=== PATIENT | male | born 1960 | race Caucasian/White ===

== ENCOUNTER → 2016-11-20 | Outpatient (CLI) | payer BC ==
[~2016-11-20] VITALS: Ht 190.5 cm; Wt 97.7 kg
[~2016-11-20] MED LIST: ATORVASTATIN PO; FISHOIL PO; FLUTICASONE OTB; METAMUCIL PO; METOPROLOL PO; MULTIVITAMIN PO; PRT/20 PO; TESTOSTERONE TOP; VITAMIN C PO; VITAMIN E PO
[2016-11-20 15:01] VITALS: BP 138/86; PULSE 56; Ht 190.5 cm; Wt 97.7 kg
== END | disposition home or self-care (01) ==
LOC: C.NEUR 14:48
PROVIDERS: ATTEND Internal Medicine Pulmonary Disease
DX: G47.33 Obstructive sleep apnea (adult) (pediatric) (principal)

== ENCOUNTER → 2016-11-29 | Outpatient (CLI) | payer BC ==
[2016-11-29 09:39] LABS: BASO % 0.6 %; BASO ABS # 0.03 K/uL (0-0.2); COMPLETE YES; EOS % 0.6 %; IG% 0.2 %; LYMPH ABS # 1.13 K/uL (1.2-3.4); MEAN CELL VOLUME 88.1 fL (80-100); MEAN CORPUSCULAR HEMOGLOBIN 30.8 pg (25-34); MONO % 10.2 %; NEUT % 67.4 %; PLATELET COUNT 148 K/uL (130-400); RED BLOOD COUNT 5.22 M/uL (4.7-6.1); WHITE BLOOD COUNT 5.39 K/uL (4.8-10.8)
[2016-11-29 09:51] LABS: ALT/SGPT 72 U/L (12-78); BLOOD UREA NITROGEN 13 mg/dl (7-18); BUN/CREATININE RATIO 14.4 (10-20); CALCIUM 9.4 mg/dl (8.5-10.1); CARBON DIOXIDE 25 mmol/L (21-32); CHLORIDE 106 mmol/L (98-107); CHOLESTEROL 163 mg/dl (0-200); CREATININE 0.93 mg/dl (0.60-1.40); GLUCOSE 116 mg/dl (70-99); POTASSIUM 4.4 mmol/L (3.5-5.1); SODIUM 141 mmol/L (136-145)
[2016-11-29 09:54] LABS: ALKALINE PHOSPHATASE 88 U/L (45-117); AST/SGOT 43 U/L (15-37); CHOLESTEROL/HDL RATIO 2.9; HDL CHOLESTEROL 57 mg/dl; LDL CHOLESTEROL CALCULATED 85 mg/dl; TRIGLYCERIDES 106 mg/dl (0-150); VERY LOW DENSITY LIPOPROT CALC 21 mg/dl
== END | disposition home or self-care (01) ==
LOC: C.LAB 07:39
PROVIDERS: ATTEND Family Medicine
DX: E29.1 Testicular hypofunction (principal); I10 Essential (primary) hypertension; E78.5 Hyperlipidemia, unspecified; Z13.0 Encounter for screening for diseases of the blood and blood-forming organs and certain disorders involving the immune mechanism

== ENCOUNTER → 2016-12-14 | Outpatient (CLI) | payer BC ==
[2016-12-14 10:31] LABS: ESTIMATED AVERAGE GLUCOSE 117 mg/dl; HA1C FLAG Normal (Normal)
== END | disposition home or self-care (01) ==
LOC: C.LAB 07:32
PROVIDERS: ATTEND Family Medicine
DX: R73.01 Impaired fasting glucose (principal)

== ENCOUNTER → 2017-05-30 | Outpatient (CLI) | payer BC | END | disposition home or self-care (01) | LOC: C.LAB 07:36 | PROVIDERS: ATTEND Urology | DX: N35.9 Urethral stricture, unspecified (principal); C62.90 Malignant neoplasm of unspecified testis, unspecified whether descended or undescended; N40.0 Benign prostatic hyperplasia without lower urinary tract symptoms; Z12.5 Encounter for screening for malignant neoplasm of prostate ==

== ENCOUNTER → 2017-10-15 | Day surgery (SDC) | payer BC ==
[2017-10-04 13:58] VITALS: Ht 190.5 cm; Wt 100.0 kg
[~2017-10-15] VITALS: Ht 190.5 cm; Wt 100.0 kg
[~2017-10-15] MED LIST changes: +ASCO-63 PO; +ATOR-22 PO; -ATORVASTATIN PO; +DEXT-233; -FISHOIL PO; +FLUT50SP45 NAE; -FLUTICASONE OTB; +LIDOCAINE HCL 2% 2 ML VIAL (20MG/ML) ONE; -METAMUCIL PO; -METOPROLOL PO; +MULT-506 PO; -MULTIVITAMIN PO; +OMEG10007 PO; +PROPOFOL IV EMULSION 10 MG/ML 20 ML VIAL IV ONE; -PRT/20 PO; +PSYL48.59 PO; +TEST5GEL TOP; -TESTOSTERONE TOP; +TPRSR/25 PO; +VITA400C3 PO; -VITAMIN C PO; -VITAMIN E PO; +ZNTT/150 PO
[2017-10-15 12:25] VITALS: TEMP 36.6
--- NOTE | 2017-10-15 12:58 | Endo History and Physical ---
History & Physical Date of Service: Oct 15, 2017. Chief Complaint: History of varicies Referring Physician: Emilia History of Present Illness For EGD Past Surgical History Hx Cardiac Surgery: Yes (HEART CATH/NO STENTS) Hx Internal Defibrillator: No Hx Pacemaker: No Hx Abdominal Surgery: No Hx of Implantable Prosthesis: No Hx Post-Op Nausea and Vomiting: No Hx Cancer Surgery: Yes (RT ORCHIECTOMY) Hx Thoracic Surgery: Yes (LAMINECTOMY) Hx Orthopedic: No Hx Urinary Tract Surgery: No Family History None Social History Smoking Status: Former Smoker Hx Substance Use: No Hx Alcohol Use: Yes (RARELY) Allergies Coded Allergies: No Known Allergies (Unverified , 10/04/17) Current Medications Reported Home Medications Medications Dose Route/Sig Max Daily Dose Days Date Category Day Time Multi-Symptom Co (Dextromethorphan-Phenylephrine) 1 Cap Cap 10/15/17 Reported Metamucil (Psyllium) 48.57 % Pow 1.5 Tsp PO QPM 10/04/17 Reported Allergy Nasal [place] 24 Ho (Fluticasone Propionate (Nasal)) 50 Mcg/Act Spr 2 [place] JONI QAM 10/04/17 Reported Androgel Pump (Testosterone) 1.62 % Gel 40.5 Mg TOP QAM 10/04/17 Reported [place]-3 (Fish Oil) 1 Ea Cap 2 Cap PO QAM 10/04/17 Reported Vitamin E 400 Iu (Vitamin E) 400 Unit Cap 800 Inter.unit PO QAM 10/04/17 Reported Vitamin C (Ascorbic Acid) 500 Mg Tab 1 Tab PO QAM 10/04/17 Reported Multivitamin (Multivitamins) Tab 1 Tab PO QAM 10/04/17 Reported Zantac (Ranitidine HCl) 150 Mg Tab 150 Mg PO QAM 10/04/17 Reported Lipitor (Atorvastatin Calcium) 20 Mg Tab 20 Mg PO QAM 10/04/17 Reported Metoprolol Succinate ER (Metoprolol Succinate) 25 Mg Tabcr 1 Tab PO QAM 10/04/17 Reported Vital Signs Weight (Kilograms): 100 Height (Feet): 6 Height (Inches): 3 Date Time Temp Pulse Resp B/P (MAP) Pulse Ox O2 Delivery O2 Flow Rate FiO2 10/15/17 12:25 36.6 54 16 144/78 (100) 96 Room Air Physical Exam General Appearance: WD/WN Respiratory/Chest: Respiratory effort: no dyspnea Cardiovascular: Heart Auscultation: RRR Abdomen: Inspection & Palpation: soft Assessment and Plan Hx of single varix for EGD
--- NOTE | 2017-10-15 13:09 | Discharge Instructions ---
Endoscopy Patient Instructions Date / Procedure(s) Performed Oct 15, 2017. EGD Allergy Information Coded Allergies: No Known Allergies (Unverified , 10/04/17) Discharge Date / Findings Oct 15, 2017. Single varix Medication Instructions Restart Stopped Medication(s): resume meds Reported Home Medications Medications Dose Route/Sig Max Daily Dose Days Date Category Day Time Multi-Symptom Co (Dextromethorphan-Phenylephrine) 1 Cap Cap 10/15/17 Reported Metamucil (Psyllium) 48.57 % Pow 1.5 Tsp PO QPM 10/04/17 Reported Allergy Nasal [place] 24 Ho (Fluticasone Propionate (Nasal)) 50 Mcg/Act Spr 2 [place] JONI QAM 10/04/17 Reported Androgel Pump (Testosterone) 1.62 % Gel 40.5 Mg TOP QAM 10/04/17 Reported [place]-3 (Fish Oil) 1 Ea Cap 2 Cap PO QAM 10/04/17 Reported Vitamin E 400 Iu (Vitamin E) 400 Unit Cap 800 Inter.unit PO QAM 10/04/17 Reported Vitamin C (Ascorbic Acid) 500 Mg Tab 1 Tab PO QAM 10/04/17 Reported Multivitamin (Multivitamins) Tab 1 Tab PO QAM 10/04/17 Reported Zantac (Ranitidine HCl) 150 Mg Tab 150 Mg PO QAM 10/04/17 Reported Lipitor (Atorvastatin Calcium) 20 Mg Tab 20 Mg PO QAM 10/04/17 Reported Metoprolol Succinate ER (Metoprolol Succinate) 25 Mg Tabcr 1 Tab PO QAM 10/04/17 Reported Provider Instructions Activity Restrictions - No exercising or heavy lifting for 24 hours. - Do not drink alcohol the day of the procedure. - Do not drive a car or operate machinery until the day after the procedure. - Do not make any important decisions or sign important papers in 24 hours after the procedure. Following Day: - Return to full activity which may include returning to work/school. Diet Start your diet with liquids and light foods (jello, soup, juice, toast). Then eat your usual diet if not nauseated. Treatment For Common After Affects For mild abdominal pain, bloating, or excessive gas: - Rest - Eat lightly - Lie on right side Follow-Up Information Follow-up with Emilia as scheduled Anesthesia Information What You Should Know You have had a procedure that required some medicine to reduce anxiety and discomfort. This treatment is called moderate sedation. After receiving the treatment, you may be sleepy, but you will be able to breathe on your own. The effects of the treatment may last for several hours. Follow these instructions along with Activity/Diet recommendations noted above: * Do NOT do anything where dizziness or clumsiness would be dangerous. * Rest quietly at home today, then you can be up and about tomorrow. * Have a responsible person stay with you the rest of today. * You may have had an I.V. today. If so, you may take the dressing off later today. Recommendations Call your doctor if: * Trouble breathing * Continuous vomiting for more than 24 hours * Temperature above 101 degrees * Severe abdominal pain or bloating * Pain not relieved by pain medicine ordered * There is increased drainage or redness from any incision * A large amount of rectal bleeding greater than 2-3 tablespoons. (If you had a polyp/s removed or have hemorrhoids, a small amount of blood - from the rectum is to be expected.) * You have any unanswered questions or concerns. IN THE EVENT OF A SERIOUS EMERGENCY, GO TO THE NEAREST EMERGENCY ROOM Your discharge instructions were prepared by provider Hermann Jacobs. Patient Instructions Signature Page [facility] Camejo Patient (or Guardian) Signature/Date: I have read and understand the instructions given to me by my caregivers. Caregiver/RN/Doctor Signature/Date: The above-named patient and/or guardian has received patient instructions on this date. + Original Patient Signature Page (only) stays with chart. Please make copy for patient.
--- NOTE | 2017-10-15 13:15 | GI REPORT ---
Procedure Date: 10/15/2017 1:03 PM Procedure: Upper GI endoscopy Indications: Follow-up of esophageal varices Medicines: Propofol total dose 170 mg IV, Lidocaine 40 mg IV Complications: No immediate complications. Estimated Blood Loss: Estimated blood loss: none. Procedure: Pre-Anesthesia Assessment: - Prior to the procedure, a History and Physical was performed, and patient medications, allergies and sensitivities were reviewed. The patient's tolerance of previous anesthesia was reviewed. - The risks and benefits of the procedure and the sedation options and risks were discussed with the patient. All questions were answered and informed consent was obtained. After obtaining informed consent, the endoscope was passed under direct vision. Throughout the procedure, the patient's blood pressure, pulse, and oxygen saturations were monitored continuously. The On-site loaner was introduced through the mouth, and advanced to the second part of duodenum. The upper GI endoscopy was accomplished without difficulty. The patient tolerated the procedure well. Findings: The Z-line was regular and was found 40 cm from the incisors. A single grade I varix was found in the middle third of the esophagus. It was 5 mm in largest diameter. The entire examined stomach was normal. The examined duodenum was normal. Impression: - Z-line regular, 40 cm from the incisors. - Grade I esophageal varices. - Normal stomach. - Normal examined duodenum. - No specimens collected. Recommendation: - Discharge patient to home (ambulatory). - Continue present medications. - Return to primary care physician PRN. Hermann Jacobs M.D. Hermann Jacobs MD 10/15/2017 1:14:56 PM This report has been signed electronically. Note Initiated On: 10/15/2017 1:03 PM I attest to the content of the Intraoperative Record and orders documented therein, exceptions below
[2017-10-15 13:42] VITALS: BP 130/83; PULSE 52; O2SAT 96
== END | disposition home or self-care (01) ==
LOC: C.GI 12:07
PROVIDERS: ATTEND Internal Medicine Gastroenterology
DX: I85.00 Esophageal varices without bleeding (principal); E78.5 Hyperlipidemia, unspecified; G47.33 Obstructive sleep apnea (adult) (pediatric); K21.9 Gastro-esophageal reflux disease without esophagitis; R01.1 Cardiac murmur, unspecified; Z87.891 Personal history of nicotine dependence; Z79.899 Other long term (current) drug therapy

== ENCOUNTER → 2017-12-05 | Outpatient (CLI) | payer BC ==
[~2017-12-05] MED LIST changes: -LIDOCAINE HCL 2% 2 ML VIAL (20MG/ML) ONE; -PROPOFOL IV EMULSION 10 MG/ML 20 ML VIAL IV ONE; +RANI150T85 PO; -ZNTT/150 PO
[2017-12-05 09:27] LABS: BASO % 0.4 %; BASO ABS # 0.02 K/uL (0-0.2); EOS % 0.9 %; EOS ABS # 0.04 K/uL (0-0.5); HEMATOCRIT 47.1 % (42-52); HEMOGLOBIN 16.2 g/dL (14.0-18.0); IG# 0.01 K/uL (0.00-0.02); LYMPH % 30.8 %; LYMPH ABS # 1.39 K/uL (1.2-3.4); MEAN CELL VOLUME 89.2 fL (80-100); MEAN CORPUSCULAR HEMOGLOBIN 30.7 pg (25-34); MEAN CORPUSCULAR HGB CONC 34.4 g/dl (32-36); MEAN PLATELET VOLUME 10.3 fL (7.4-10.4); MONO % 13.3 %; NEUT % 54.4 %; NEUT ABS # 2.45 K/uL (1.4-6.5); PLATELET COUNT 133 K/uL (130-400); RED CELL DISTRIBUTION WIDTH CV 13.8 % (11.5-14.5); RED CELL DISTRIBUTION WIDTH SD 45.1 fL (36.4-46.3); WHITE BLOOD COUNT 4.51 K/uL (4.8-10.8)
[2017-12-05 09:41] LABS: HEMOGLOBIN A1C 5.7 % (4.5-5.6)
[2017-12-05 09:43] LABS: ALBUMIN 3.8 gm/dl (3.4-5.0); ALT/SGPT 52 U/L (12-78); AST/SGOT 37 U/L (15-37); BLOOD UREA NITROGEN 14 mg/dl (7-18); CALCIUM 8.8 mg/dl (8.5-10.1); CARBON DIOXIDE 29 mmol/L (21-32); CHOLESTEROL 151 mg/dl (0-200); CREATININE 0.95 mg/dl (0.60-1.40); GLUCOSE 102 mg/dl (70-99); POTASSIUM 4.5 mmol/L (3.5-5.1); SODIUM 138 mmol/L (136-145)
[2017-12-05 09:53] LABS: ALKALINE PHOSPHATASE 73 U/L (45-117); LDL CHOLESTEROL CALCULATED 82 mg/dl; TOTAL PROTEIN 7.4 gm/dl (6.4-8.2)
== END | disposition home or self-care (01) ==
LOC: C.LAB 08:26
PROVIDERS: ATTEND Urology
DX: E78.5 Hyperlipidemia, unspecified (principal); R73.01 Impaired fasting glucose; N35.9 Urethral stricture, unspecified

== ENCOUNTER → 2018-01-03 | Outpatient (CLI) | payer BC ==
--- NOTE | 2018-01-04 06:09 | PAP/PSG TECHNICIAN REPORT ---
[facility] Administrator Of Home Health Polysomnogram Report Study name: None Report date: 01/04/2018 Study date: 01/03/2018 Referring Physician: Minoo Cervantes PA-C, PA-C Name: ROBYN SCRUGGS Interpreting Physician: Chavo Stephens M.D. Date of : 1960 Administrator Of Home Health: Danita Geiger, PSGT. Sex: Male Age: 57 StudyType: PSG Weight: 219 lbs Height: 57 years, Height 6' 3" Neck Circum:17.5 inches BMI: 27.37 Medications: Vitamin C, Atorvastatin 20 mg, Metoprolol ER 25 mg, Srinivasa gel pump, Fluticasone 50 mcg, Fortesta 10 mg, Fish Oil, Metamucil, Multi-Vitamin, Ranitidine 150 mg, Vitamin E 400 unit. Patient History 57-year-old male presents to the lab to see if he still has CATHRYN, he has used c-pap in the past at the rate of 8 cm h20 but was told his last study that it was up to him rather he use it or not. He has not been very compliant with it since. He is here to see if it is really a need or not. Neck = 17.5 inches Parameters Monitored NPSG: E1-M2, E2-M1, Fp1-M2, Fp2-M1, F3-M2, F4-M2, F4-M1, C3-M2, C4-M2, C4-M1, O1-M2, O2-M2, O2-M1, T3-M2, T4-M1, P3-M2, P4-M1, CHIN1, CHIN2, HR, EKG, Legs, PFLOW, SNOR, FLOW, CFLOW, Tidal Volume, THOR, ABDO, SpO2, PLTH, CPRESS, ETCO2 Wave, ETCO2, pH Sleep Architecture Sleep Stages Time at Lights Off 10:41:56 PM STAGES Time (min.) TST (%) Time at Lights On 5:33:26 AM Wake 94.0 -- Total Recording Time (TRT) 412.50 min. N1 22.5 7 Total Sleep Period (TSP) 390.0 min. N2 192.0 60 Total Sleep Time (TST) 317.5min. N3 0.0 0 Awake Time 95.0 min. REM 103.0 32 Wake after Sleep Onset 83.0 min. Sleep Efficiency (SE) 77 % Sleep Onset Latency (ERIKA) 11.0 min. Number of Stage 1 Shifts None Awakenings 6 Stage Changes 33 Number of REM periods 5 REM 103.0 32 REM Latency 49.5 min. NREM 214.5 68 Body Position Analysis Supine Right Left Side Prone Vertical Total Sleep Time (min.) 284.7 75.2 0.0 75.17 0.0 0.0 Total Sleep Time (%) 76% 24% 0% 24 0% N/A% Total Sleep Time REM (min.) 101.8 1.2 0.0 None 0.0 0.0 Total Sleep Time NREM (min.) 140.5 74.0 0.0 None 0.0 0.0 Intermittent Wake (min.) 42.3 51.7 0.0 None 0.0 0.0 Total Sleep Period (%) 67% None None None None None Arousals Myoclonus (PLM) * Events Count Index Events Count Index Spontaneous 33 6 Events Awake (PLMW) 4 2.6 Respiratory 12 2.3 Events Asleep w/ Arousal (PLMA) 10 1.9 PLM 10 2 Events Asleep w/o Arousal (PLMS) 94 17.8 Snoring 5 1 Total Asleep 104 19.7 Total 60 11 Total 108 16 Respiratory Analysis * CA OA MA CH H RERA Total Count 0 1 0 0 85 0 86 Index 0.0 0.2 0.0 0 16.1 0 16.3 Mean Duration 0.0 14.1 0.0 0.00 18.7 0.0 18.6 Longest Duration 0.0 14.1 0.0 0.00 0.0 0.0 48.8 Respiratory Event Summary Total Supine ~Supine Right Left Prone REM NREM Apneas Count 1 1 0 0 N/A N/A 0 1 Index 0.2 0 0 0.0 N/A N/A 0 0 Hypopneas (4% Desat) Count 85 84 1 1 N/A N/A 38 47 Index 16.1 20.8 1 0.8 N/A N/A 22.1 13.1 Apneas & All Hypopneas Count 86 85 1 1 N/A N/A 38 48 Index 16.3 21 1 1 N/A N/A 22.1 13.4 Respiratory Events (Medical Billing Clerk+All Hyp+RERA) Count 86 85 1 1 N/A N/A 38 48 Index 16.3 21 1 0.8 N/A N/A 22.1 13.4 Respiratory Related Arousal Count 12 85 0 0 N/A N/A 5 7 Index 2.3 3 0 0 N/A N/A 3 2 Snoring Analysis Supine Right Left Prone REM NREM Total Snore duration 7.9 min Snores count 384 4 N/A N/A 134 254 388 Snore mean duration 1.2 Sec Snores index 95 3 N/A N/A 78.1 71.0 73.3 TST with snoring (%) 2.5% Desaturation Event Summary: Minimum %SpO2 Event Count Mean/Min/Max Duration(sec.) Desaturation Index % Time In Bed > 90 110 24.2 / 6.0 / 60.0 21.9 76.2 86 - 90 25 21.7 / 4.5 / 60.0 16.4 23.2 81 - 85 0 N/A 0.0 0.6 76 - 80 0 N/A 0.0 0.0 71 - 75 0 N/A 0.0 0.0 66 - 70 0 N/A 0.0 0.0 61 - 65 0 N/A 0.0 0.0 56 - 60 0 N/A 0.0 0.0 51 - 55 0 N/A 0.0 0.0 < 50 0 N/A 0.0 0.0 Total REM NREM Awake <50% 0.0 min. 0.0 min. 0.0 min. 0.0 min. 51 - 60% 0.0 min. 0.0 min. 0.0 min. 0.0 min. 61 - 70% 0.0 min. 0.0 min. 0.0 min. 0.0 min. 71 - 80% 0.0 min. 0.0 min. 0.0 min. 0.0 min. 81 - 90% 94.1 min. 37.6 min. 48.6 min. 7.8 min. 91 - 100% 301.3 min. 62.5 min. 161.1 min. 77.7 min. Average 92 91 91 93 Minimum SpO2 80 81 83 80 Desaturation Event Index 17.5 31.5 18.7 0.0 # Desat. Events below 89% 58 28 30 N/A Time(%) with Saturation below 89% 3.8 2.3 1.4 0.1 Time(min.) with Saturation below 89% 15.0 9.0 5.5 0.6 Time (mins) REM (mins) NREM (mins) % of TST SpO2 Below 90% 110 47 N63 10.0 SpO2 Below 88% 22 0 0 2 Heart Rate Analysis Min (bpm) Max (bpm) Average (bpm) Awake 47 127 55 NREM 47 127 54 REM 45 127 56 Overall 45 127 55 Supplemental O2 Values Minimum O2 level: None Value Start Time End Time Administrator Of Home Health Comments PSG Study slept in the right, and supine positions. No cardiac arrhythmia or PLM's noted. No bruxism noted. Snoring was noted and scored as a 2 on a scale of 1 through 5. (0=no snoring, 5=snoring loud enough to be heard through a closed door or down the banuelos way) Mr. Scruggs awoke to use the restroom 1 time during the night. Mr. Scruggs stated, I did sleep as well as I do when I am in my own bed. The final report will be interpreted and signed by a sleep physician. The completed physician report will then be placed in the patient medical record Therapy (cm H2O) 0 TIB (min.) 411.5 TST (min.) 317.5 Sleep Onset (min.) 11.0 REM Onset From Sleep (min.) 49.5 Sleep Efficiency % 77 Wakefulness (%) 23 Wakefulness (min.) 95.0 NREM 1 (%) 7 NREM 1 (min.) 22.5 NREM 2 (%) 60 NREM 2 (min.) 192.0 NREM 3 (%) 0 NREM 3 (min.) 0.0 REM (%) 32 REM (min.) 103.0 # Arousals 60 Arousal Index 11 # Snore 388 Snore Index 73.3 AHI 16.3 AHI Supine 21 AHI Non-Supine 1 NREM AHI 13.4 REM AHI 22.1 RDI 16.3 # Obstructive Apnea 1 # Central Apnea 0 # Mixed Apnea 0 # Hypopneas 85 RERAs 0 Total Respiratory Events 86 Time Below SpO2 89% (min.) 14.4 Mean NREM SpO2 (%) 91 Mean REM SpO2 (%) 91 Mean Sleep SpO2 (%) 91 Min NREM SpO2 (%) 83 Min REM SpO2 (%) 81 Position Supine (min.) 284.7 Position Non-supine (min.) 75.2 LM Index Sleep 19.7 LM Index NREM 19.3 LM Index REM 20.4 Mean Heart Rate (bpm) 55 Min Heart Rate (bpm) 45
--- NOTE | 2018-01-04 15:08 | POLYSOMNOGRAPH REPORT ---
CLINICAL DATA: A 57-year-old male with a BMI of 27.37, referred by Minoo Cervantes for a sleep study. He wants to know if he still has sleep apnea He has used CPAP in the past, 8 cm water pressure, but has not been compliant with it since his last study. SLEEP ARCHITECTURE: Total sleep period was 390 minutes. Total sleep time was 317.5 minutes divided between 214.5 minutes of non-REM sleep and 103 minutes of REM sleep. Sleep onset latency was 11 minutes. REM latency was 49.5 minutes. Sleep efficiency was 77%. Wake after sleep onset was 83 minutes. Sleep consisted of stage N1 7%, stage N2 60%, and REM 32%. AROUSAL DATA: Sixty arousals were recorded for an index of 11 per hour. PERIODIC LIMB MOVEMENT DATA: Mildly elevated limb movements during sleep were noted. There 104 limb movements during sleep noted for an index of 19.7 per hour with arousal index of 1.9 per hour. RESPIRATORY DATA: Moderate sleep apnea was documented. The AHI was 16.3. There was 1 obstructive apneic episode, 14.1 seconds in duration. There were 85 hypopneic episodes with mean duration of 18.7 seconds. OXIMETRY DATA: Nocturnal hypoxemia was seen. Oxygen jadyn was 81% during REM. Mean saturation was 92%. Time below 88% was 22 minutes. ECHOCARDIOGRAM: Heart rate ranged from 45-127 beats per minute. No arrhythmias were noted. GARBAGE TRUCK DISPATCHER'S COMMENTS: The patient slept in the right and supine position. His snoring was mild, rated 2 on a scale of 1-5. IMPRESSION: Moderate sleep apnea/hypopnea with an apnea/hypopnea index of 16.3 with an oxygen jadyn of 81%. RECOMMENDATIONS: The patient may benefit from reinstitution of CPAP, a repeat sleep study with CPAP, or use of an oral appliance. Clinical correlation is needed. ESTEBAN
== END | disposition home or self-care (01) ==
LOC: C.NEUR 20:00
PROVIDERS: ATTEND Physician Assistant
DX: G47.33 Obstructive sleep apnea (adult) (pediatric) (principal)

== ENCOUNTER → 2018-02-05 | Outpatient (CLI) | payer BC | END | disposition home or self-care (01) | LOC: C.LAB 08:26 | PROVIDERS: ATTEND Urology | DX: C62.90 Malignant neoplasm of unspecified testis, unspecified whether descended or undescended (principal); K76.0 Fatty (change of) liver, not elsewhere classified ==

== ENCOUNTER → 2018-02-18 | Outpatient (CLI) | payer BC ==
[2018-02-19 10:35] LABS: HEPATITIS C VIRAL RNA BY PCR <15 NOT DETECTED IU/ML (<15); HEPATITIS C VIRAL RNA(LOG) PCR <1.18 NOT DETECTED LOG IU/ML (<1.18)
== END | disposition home or self-care (01) ==
LOC: C.LAB 10:22
PROVIDERS: ATTEND Internal Medicine
DX: K76.0 Fatty (change of) liver, not elsewhere classified (principal)